=== PATIENT | male | born 1950 | race Caucasian/White ===

== ENCOUNTER → 2017-06-05 | Outpatient (CLI) | payer OTHER, MEDICARE | LOC: BHLMT 08:30 | PROVIDERS: ATTEND Internal Medicine Cardiovascular Disease | DX: R94.31 Abnormal electrocardiogram [ECG] [EKG] (principal); I25.10 Atherosclerotic heart disease of native coronary artery without angina pectoris; R06.02 Shortness of breath | CPT/HCPCS: 78452; 93017; A9500 ==

== ENCOUNTER → 2018-03-19 | Outpatient (CLI) | payer OTHER, MEDICARE | LOC: FIMAGING 18:39 | PROVIDERS: ATTEND Physician Assistant Medical | DX: G35 Multiple sclerosis (principal); M50.321 Other cervical disc degeneration at C4-C5 level; M53.82 Other specified dorsopathies, cervical region ==